=== PATIENT | female | born 1955 | race Caucasian/White ===

== ENCOUNTER 2022-01-25 13:55 | Outpatient (REF) | payer MEDICARE, SELFPAY | END 2022-01-25 13:56 | disposition home or self-care (01) | LOC: LAB 13:55 | PROVIDERS: Visit Provider Orthopaedic Surgery | DX: Z20.822 Contact with and (suspected) exposure to COVID-19 (principal); Z01.818 Encounter for other preprocedural examination | CPT/HCPCS: 36415; 86850; 86900; 86901; 87635 ==

== ENCOUNTER 2022-01-26 06:14 | Day surgery (SDC) | payer MEDICARE, SELFPAY ==
[2022-01-26] VITALS (25 sets, daily range): BP systolic 121–182; BP diastolic 70–126; PULSE 65–86; RESP 14–18; TEMP 36–36.9; O2SAT 85–100
[2022-01-26] MEDS: OXYCODONE (CR) 10 MG TAB.ER.12H PO (06:44)
[2022-01-26] MEDS: ACETAMINOPHEN 500 MG TABLET 1000 MG PO ×3 (06:44→18:54)
[2022-01-26] MEDS: CELECOXIB 200 MG CAPSULE PO ×2 (06:44→21:16)
[2022-01-26] MEDS: SODIUM CHLORIDE 0.9 % (FLUSH) 10 ML SYRINGE IVF (07:27)
[2022-01-26] MEDS: LACTATED RINGERS 1000 ML 1,000 ML 100 ML IV ×2 (07:28→09:37)
[2022-01-26] MEDS: MIDAZOLAM HCL 1 MG/ML inj IVP (07:36)
[2022-01-26] MEDS: fentaNYL 100 MCG/2 ML inj IVP (07:36)
--- NOTE | 2022-01-26 07:43 | SUR.PREOP ---
TIME?OUT:?0735 PT/RN/MDA?VERIFICATION?OF?SURGICAL?SITE,?PROCEDURE,?AND?CONSENT OBTAINED?PRIOR?TO?INVASIVE?PROCEDURE.
--- NOTE | 2022-01-26 07:45 | CRLHL7_ITS ---
For Patients: As a result of the Cures Act, medical imaging exams and procedure reports are released immediately into your electronic medical record. You may view this report before your referring provider. If you have questions, please contact your health care provider. Indication: Hip replacement surgery Technique: AP hip fluoroscopic images. Fluoroscopy time 78.9 seconds. Findings/Impression: Hardware from a left total hip arthroplasty is in satisfactory position. Dictated by Issac Livingston MD @ 01/26/2022 10:25:44 AM (Electronically Signed)
[2022-01-26] MEDS: CEFAZOLIN 2 GM INJ IVP (07:50)
[2022-01-26] MEDS: TRANEXAMIC ACID 100 MG/ML INJ 1000 MG IV (07:55)
--- NOTE | 2022-01-26 09:35 | CRLHL7_ITS ---
For Patients: As a result of the Cures Act, medical imaging exams and procedure reports are released immediately into your electronic medical record. You may view this report before your referring provider. If you have questions, please contact your health care provider. Indication: POST OP left DALILA Technique: AP hip center pelvis and lateral view left hip. Findings/Impression: Hardware from a left total hip arthroplasty is in satisfactory position. Bone alignment is normal. No sign of acute fracture. Postop changes are within normal limits. Dictated by Issac Livingston MD @ 01/26/2022 10:56:36 AM (Electronically Signed)
--- NOTE | 2022-01-26 09:37 | P.ORPRC_ITS ---
Procedure Note Date of procedure: 01/26/22 Procedure: PREOPERATIVE DIAGNOSIS: Left hip osteoarthritis POSTOPERATIVE DIAGNOSIS: Left hip osteoarthritis NAME OF OPERATION: Left total hip arthroplasty SURGEON: Terry Dietz MD [employer] HOST/HOSTESS: Merna Villarreal PA-C, ANTIONETTE Garibay IMPLANTS: 1. J&J Max # 52 sector ingrowth cup 2. 36 x 52 +4 neutral polyethylene 3. Actis # 6 standard collared ingrowth stem 4. 36 + 1.5 ceramic femoral head ANESTHESIA: Spinal ESTIMATED BLOOD LOSS: 100 cc COMPLICATIONS: None SPECIMENS: None DRAINS: None PREOPERATIVE ANTIBIOTICS: Ancef 2 grams INDICATIONS: The patient is a 66-year-old with a longstanding history of severe, unrelenting left hip pain secondary to end-stage left hip osteoarthritis. Despite appropriate nonoperative management, including activity modification, use of an assist device, anti-inflammatories, [id number] pain medication, physical therapy and injections, they continue to have pain and disability. Operative intervention was offered. The risks, benefits and expected outcomes were discussed in detail. These included but were not limited to: Infection, bleeding, injury to blood vessel or nerve, venous thromboembolism. All questions were answered to their satisfaction. Use of an tutoring assistant was necessary throughout the case for patient positioning and safety, soft tissue retraction and closure. PROCEDURE: The patient was placed supine on the Kennedy table. General anesthesia was administered. The tutoring assistant made sure the patient was properly positioned. The left hip was prepped and draped in the usual sterile fashion. The image intensifier was brought in for a perfect AP pelvis and a perfect double tear drop AP view of each hip which were used for intraoperative templating with our fluoroscopic guide. An oblique incision was made 3 cm distal and 3 cm lateral to the anterior superior iliac spine. The tutoring assistant retracted the soft tissues to protect them. Subcutaneous dissection was taken with electrocautery to the superficial fascia. The fascia was divided in line with the incision. Blunt dissection was carried medially to the tensor fascia nilsa and sartorius interval. Deep dissection was carried with electrocautery. The circumflex vessels were cauterized and divided. The capsule was exposed and then divided in a T- fashion, tagged with #1 Ethibond sutures. Retractors were placed in the joint, held by the tutoring assistant. The corkscrew was placed in the femoral head. The neck cut was made in the subcapital region. We made a second neck cut more distal. The napkin ring of bone was removed. The femoral head was removed intact. Acetabular retractors were placed, held by the tutoring assistant. The labrum was sharply debrided. The capsule was released. The 43 mm reamer was used to the true medial wall. We then enlarged in 2 mm increments using the image intensifier for our reamer placement. We impacted the cup which had excellent purchase. We placed the hole eliminator and the polyethylene. Attention was then turned to the proximal femur. The limb was placed in 140 degrees of external rotation, maximum extension and adduction. A significant amount of time was spent releasing the capsule to allow us to deliver the femur into the wound and complete the femoral side safely. Retractors were held by the tutoring assistant throughout the femoral preparation. The spreader box operator and canal finder were used. Broaches were used to a stable size. The calcar reamer was used. Trial components were placed. The hip was reduced and was found to be stable with appropriate soft tissue tension. Length and offset had been nicely restored using the image intensifier and our fluoroscopic guide. Trial components were removed. The stem was impacted. We placed the femoral head. Again, the hip was reduced and was found to be stable with appropriate soft tissue tension. Length and offset had been nicely restored. The tutoring assistant did a three minute dilute Betadine solution soak. The tutoring assistant irrigated the wound with 3 liters of normal saline via pulse lavage. The krish whitley repaired the anterior capsule with a #1 Vicryl and our previously placed Ethibond sutures. The tutoring assistant closed the fascia over the tensor fascia nilsa with a #1 PDO Stratafix, subcutaneous tissues with 2-0 Vicryl, skin with a running 3-0 Stratafix and glue. A dry dressing was applied by the tutoring assistant. Sponge and needle counts were correct x 2. The patient tolerated the procedure well; there were no apparent complications. They were awakened and extubated in the operating room, sent to the Post-Anesthesia Care Unit in satisfactory condition. PLAN: 1. The patient will be mobilized with physical therapy, weight-bearing as tolerates 2. Xarelto x 5 days then aspirin x 30 days will be used for DVT prophylaxis 3. The patient will be discharged once medically appropriate
--- NOTE | 2022-01-26 10:13 | P.NB_ITS ---
Nerve Block Nerve Block Time Seen by Provider: 07:41 Date Seen: 01/26/22 Type of block requested by surgeon for post-operative analgesia: MATTHIAS/LFCN Side: left Time out performed: Yes Verification of patient name: Yes Verification of date of : Yes Site marking: site marked Name of person performing procedure: Vel Continuous monitoring Was continuous monitoring of O2 sat, B/P, groundwater monitoring technician, recorded every 15 minutes?: Yes Procedure Checklist: sterile prep, needles and gloves Ultrasound guided. Images saved: Yes Medications given in 5ml increments after negative aspiration: Ropivicaine %: 0.5 mL: 30 Needle gauge: 20 Decadron (mg): 10 Precedex (mcg): 25 Patient tolerated procedure well: Yes Additional comments: Needle noted below psoas tendon needle noted adjacent to LFCN Block Charges Block Charge (with Pro Fee): Other Periph Nerve Block Use of Ultrasound Machine for Block: Yes- US Guidance/pain block
--- NOTE | 2022-01-26 10:25 | W.ANESCHARGE ---
Anesthesia Charges Start Date/Time Anesthesia Start Date: 01/26/22 Anesthesia Start Time: 07:44 Stop Date/Time Anesthesia Stop Date: 01/26/22 Anesthesia Stop Time: 10:22 Summary Emergency: No
--- NOTE | 2022-01-26 11:07 | W.ANESCHARGE ---
Anesthesia Charges Start Date/Time Anesthesia Start Date: 01/26/22 Anesthesia Start Time: 07:44 Stop Date/Time Anesthesia Stop Date: 01/26/22 Anesthesia Stop Time: 10:22 Summary Emergency: No
[2022-01-26] MEDS: HYDROmorphone 0.5 mg/0.5 ml inj IVP (11:20)
[2022-01-26] MEDS: OXYCODONE 5 MG TABLET PO ×2 (13:41→18:56)
[2022-01-26] MEDS: CEFAZOLIN 2 GM in 0.9 % SODIUM CHLORIDE Mini-bag 100 ML IVPB ×2 (13:42→22:16)
[2022-01-26] MEDS: LACTATED RINGERS 1000 ML 1,000 ML 75 ML IV (13:42)
--- NOTE | 2022-01-26 17:09 | PC.NURSE ---
Pt alert and oriented x4, pleasant and cooperative. Pt up with SBA. Pt voided 300. Pt reported 6/10 pain in left hip on arrival pain managed with PRN Oxy. Currently reported pain level 0-2/10. Tolerating a regular diet. Pt denies N/V. Dressing is DCI with active ice applied to side of hip.
--- NOTE | 2022-01-26 19:09 | P.IMCN_ITS ---
Date of Consult Patient: Mike Patient Consult date: 01/26/22 Primary Care Provider: Not a Local Provider (China Mendoza, FASHION BUYER at [facility]) Consult Narrative Reason for consult: Medical management of comorbidities Narrative: Gabrielle James is a 66 year old female who presented to the hospital today for an elective left DALILA. There were no surgical or anesthetic complications noted during procedure. She has ambulated since procedure and is overall feeling well. Patient's H&P reviewed, PCP is [facility] clinic in [place]. Past medical history significant for: Essential hypertension, PCOS, hypothyroidism + family history of malignant hyperthermia. History of blood clots: No Postoperative plan: Home with son Patient is nonsmoker, no concerning alcohol use. 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 Review of Systems Status of ROS: Reports: 10 or more systems reviewed and unremarkable except as noted in History and below PFSH PFSH Medical History (Updated 01/26/22 @ 19:18 by Suzi Chandler MD) Arthritis of left wrist Arthritis of right wrist Family history of anesthesia complication Hyperlipidemia Hypertension Hypothyroidism Osteopenia Polycystic ovarian syndrome Postmenopausal Vitamin D deficiency Surgical History (Updated 01/26/22 @ 19:17 by Suzi Chandler MD) H/O arthroscopy of knee H/O section H/O hysterectomy with oophorectomy H/O medial meniscus repair of left knee History of anterior colporrhaphy History of medial meniscus repair of right knee History of repair of rectocele S/P tonsillectomy Status post right hip replacement Social History (Updated 11/16/21 @ 14:05 by Hali Zhong [facility]) Smoking Status: Never smoker Do you use any of these nicotine containing products: None Second hand tobacco smoke exposure: No How often do you have a drink containing alcohol: monthly or less AUDIT-C Alcohol total score: 1 Non-prescribed substance use: denies use Caffeine: Yes (coffee ( very weak) 3 cups/day) Are you using contraception or practicing any form of control: No Meds Home Medications and Allergies Home Medications Medication Instructions Recorded Confirmed Type levothyroxine 125 mcg tablet 125 mcg PO DAILY 11/14/21 01/26/22 History metformin 500 mg tablet 500 mg PO BIDWM 11/14/21 01/26/22 History acetaminophen 500 mg tablet (Pain 500 mg PO Q6H PRN 01/25/22 01/26/22 History Reliever (acetaminophen)) atenolol 50 mg tablet 50 mg PO DAILY 01/25/22 01/26/22 History ibuprofen 200 mg tablet (Advil) 200 - 400 mg PO Q6H PRN 01/25/22 01/26/22 History mometasone 50 mcg/actuation nasal 2 spray intranasal DAILY PRN 01/25/22 01/26/22 History spray Allergies Allergy/AdvReac Type Severity Reaction Status Date / Time bee venom protein (honey bee) Allergy Severe Anaphylaxis Verified 01/25/22 08:42 propoxyphene Allergy Severe Anaphylaxis Verified 01/25/22 08:42 adhesive tape Allergy Rash Verified 01/25/22 08:42 Exam Narrative: Exam Narrative: GEN: Alert and oriented, sitting comfortably in bedside chair and answering questions appropriately HEENT: Normal external ears, EOMIs bilaterally, no scleral icterus CV: RRR, No concerning murmurs, rubs, or gallops R: LCTA bilaterally without concerning wheezing, rales, or rhonchi Ext: wwp, no concerning edema Skin: No concerning skin lesions or rashes on exposed skin Neuro: Nonfocal Psych: Appropriate Const: Vital Signs, click to edit/add: Vital Signs - 24 hr 01/26/22 07:01 01/26/22 07:22 01/26/22 07:38 Temperature 97.9 F Pulse Rate 68 65 67 Pulse Rate [Right Pulse Oximeter] Respiratory Rate 16 16 16 Blood Pressure 182/84 H 168/88 H 174/91 H Blood Pressure [Le ft Arm] Blood Pressure [Ri ght Arm] Pulse Oximetry 96 97 97 Oxygen Delivery Me thod Room Air Nasal Cannula Nasal Cannula Oxygen Flow Rate 3 3 01/26/22 10:18 01/26/22 10:25 01/26/22 10:30 Temperature 97.3 F L Pulse Rate 69 69 65 Pulse Rate [Right Pulse Oximeter] Respiratory Rate 14 14 14 Blood Pressure 128/87 123/71 121/81 Blood Pressure [Le ft Arm] Blood Pressure [Ri ght Arm] Pulse Oximetry 100 100 100 Oxygen Delivery Me thod OxyMask OxyMask OxyMask Oxygen Flow Rate 5 4 2 01/26/22 10:35 01/26/22 10:40 01/26/22 10:45 Temperature Pulse Rate 65 66 67 Pulse Rate [Right Pulse Oximeter] Respiratory Rate 14 16 16 Blood Pressure 133/87 148/83 H 150/90 H Blood Pressure [Le ft Arm] Blood Pressure [Ri ght Arm] Pulse Oximetry 100 97 97 Oxygen Delivery Me thod Room Air Oxygen Flow Rate 01/26/22 10:50 01/26/22 10:59 01/26/22 11:00 Temperature 98.1 F 96.8 F L 96.8 F L Pulse Rate 67 67 Pulse Rate [Right Pulse Oximeter] 67 Respiratory Rate 16 14 14 Blood Pressure 146/79 H Blood Pressure [Le ft Arm] 155/126 H Blood Pressure [Ri ght Arm] 155/126 H Pulse Oximetry 97 97 Oxygen Delivery Me thod Room Air Room Air Room Air Oxygen Flow Rate 2 01/26/22 11:15 01/26/22 11:30 01/26/22 11:45 Temperature 97.3 F L Pulse Rate Pulse Rate [Right Pulse Oximeter] 68 69 70 Respiratory Rate 14 Blood Pressure Blood Pressure [Le ft Arm] Blood Pressure [Ri ght Arm] 144/103 H 150/90 H 144/82 H Pulse Oximetry 98 90 96 Oxygen Delivery Me thod Room Air Room Air Room Air Oxygen Flow Rate 01/26/22 12:00 01/26/22 12:30 01/26/22 13:00 Temperature 97.5 F L 98.5 F Pulse Rate Pulse Rate [Right Pulse Oximeter] 70 77 82 Respiratory Rate 16 16 Blood Pressure Blood Pressure [Le ft Arm] Blood Pressure [Ri ght Arm] 163/95 H 151/89 H 141/76 H Pulse Oximetry 95 95 95 Oxygen Delivery Me thod Room Air Room Air Room Air Oxygen Flow Rate 01/26/22 14:00 01/26/22 15:00 01/26/22 16:00 Temperature 98.5 F 98.3 F 97.5 F L Pulse Rate Pulse Rate [Right Pulse Oximeter] 81 80 86 Respiratory Rate 18 16 18 Blood Pressure Blood Pressure [Le ft Arm] 132/75 136/78 Blood Pressure [Ri ght Arm] 152/84 H Pulse Oximetry 97 98 98 Oxygen Delivery Me thod Room Air Room Air Room Air Oxygen Flow Rate 01/26/22 17:00 Temperature 98.1 F Pulse Rate Pulse Rate [Right Pulse Oximeter] 76 Respiratory Rate 16 Blood Pressure Blood Pressure [Le ft Arm] 133/70 Blood Pressure [Ri ght Arm] Pulse Oximetry 92 Oxygen Delivery Me thod Room Air Oxygen Flow Rate Assessment and Plan Assessment and plan (1) S/P hip replacement: Problem comment: - LEFT, 01/[address] Dietz Status: Acute (2) Hypertension: Problem comment: - on atenolol Status: Acute (3) Hypothyroidism: Problem comment: - on replacement Status: Acute Plan - anticipate routine postoperative cares and course - pain management and prophylaxis per orthopedic surgery team - continue home medications
[2022-01-26] MEDS: SENNOSIDES 1 TAB TABLET 2 TAB PO (21:17)
[2022-01-26] MEDS: atenoloL 50 MG TABLET PO (21:17)
--- NOTE | 2022-01-26 22:09 | PC.NURSE ---
End of Shift: Patient pleasant and cooperative. Afebrile. Dressing to left hip C/D/I. CMS intact. Denies pain. Up with 1 assist, walker and gait belt. Tolerating regular diet with no nausea. O2 sats decrease to 85-88% on room air while sleeping. !L NC applied and sats above 90%, updated .
[2022-01-27] MEDS: OXYCODONE 5 MG TABLET PO (00:25)
[2022-01-27] MEDS: ACETAMINOPHEN 500 MG TABLET 1000 MG PO ×2 (00:25→07:57)
[2022-01-27 03:00] VITALS: PULSE 70; RESP 16; O2SAT 93
[2022-01-27] MEDS: CEFAZOLIN 2 GM in 0.9 % SODIUM CHLORIDE Mini-bag 100 ML IVPB (05:35)
[2022-01-27 06:50] LABS: Basophils Percent Auto 0.2 % (0.0-3.0); Eosinophils Percent Auto 0.1 % (0.0-7.0); Hematocrit 35.5 % (33.0-51.0); Hemoglobin* 11.5 gm/dL (12.0-16.0); Immature Granulocytes Pct Auto 0.6 %; Lymphocytes Percent Auto 14.6 % (20-44); Mean Corpuscular HGB Conc 32 gm/dL (32-36); Mean Corpuscular Hemoglobin 30 pg (26-34); Mean Corpuscular Volume 93 fL (80-100); Monocytes Percent Auto 10.7 % (0.0-11.0); Neutrophils Percent Auto 73.8 % (42.0-72.0); Platelet Count* 264 K/uL (140-440); RDW Coefficient of Variation % 12.9 % (11.5-15.5); White Blood Count* 13.12 K/uL (4.50-11.00)
[2022-01-27 07:00] VITALS: BP 133/75; PULSE 72; RESP 20; TEMP 37; O2SAT 95
[2022-01-27 07:01] LABS: Slide Review Reflex No
[2022-01-27 07:32] LABS: Potassium* 4.2 mmol/L (3.6-5.1); Sodium* 139 mmol/L (135-149)
[2022-01-27 07:35] LABS: Creatinine* 0.7 mg/dL (0.5-1.5); Estimated Glomerular Filt Rate 95 ml/min
--- NOTE | 2022-01-27 07:35 | PC.NURSE ---
23-07: pleasant and cooperative. SBA with gb and walker. Walked halls x 2. VSS. Ice to hip.?Dressing CDI.
[2022-01-27 07:36] LABS: Blood Urea Nitrogen* 17 mg/dL (7-30)
[2022-01-27] MEDS: METFORMIN 500 MG TABLET PO (07:57)
[2022-01-27] MEDS: CELECOXIB 200 MG CAPSULE PO (07:57)
[2022-01-27] MEDS: LEVOTHYROXINE 125 MCG TABLET PO (07:58)
[2022-01-27] MEDS: RIVAROXABAN 10 MG TABLET PO (07:58)
[2022-01-27] MEDS: SENNOSIDES 1 TAB TABLET 2 TAB PO (08:00)
--- NOTE | 2022-01-27 09:00 | PM.ORPN ---
Subjective Subjective Time Seen by Provider: 07:30 Date Seen: 01/27/22 Principal diagnosis: Left total hip arthroplasty 01/26/2022 Interval history: Gabrielle is comfortable this morning. She had a good night's sleep. She will be discharging to home today. Ortho Exam Narrative Exam Narrative: Alert and oriented x3. Patient is in no acute distress. Converses without labored breathing. Hearing is grossly intact. Ambulates with a walker. Examination of left hip shows the dressing is intact. There is no erythema or drainage. Minimal soft tissue edema about the left hip and thigh. CMS is intact left lower extremity however she does have a small patch of numbness distal to her incision. Bilateral calves are soft and nontender. Good quad strength Const Vital Signs, click to edit/add: Vital Signs - 24 hr 01/26/22 10:18 01/26/22 10:25 01/26/22 10:30 Temperature 97.3 F L Pulse Rate 69 69 65 Pulse Rate [Right Pulse Oximeter] Respiratory Rate 14 14 14 Blood Pressure 128/87 123/71 121/81 Blood Pressure [Left Arm] Blood Pressure [Right Arm] Pulse Oximetry 100 100 100 Oxygen Delivery Method OxyMask OxyMask OxyMask Oxygen Flow Rate 5 4 2 01/26/22 10:35 01/26/22 10:40 01/26/22 10:45 Temperature Pulse Rate 65 66 67 Pulse Rate [Right Pulse Oximeter] Respiratory Rate 14 16 16 Blood Pressure 133/87 148/83 H 150/90 H Blood Pressure [Left Arm] Blood Pressure [Right Arm] Pulse Oximetry 100 97 97 Oxygen Delivery Method Room Air Oxygen Flow Rate 01/26/22 10:50 01/26/22 10:59 01/26/22 11:00 Temperature 98.1 F 96.8 F L 96.8 F L Pulse Rate 67 67 Pulse Rate [Right Pulse Oximeter] 67 Respiratory Rate 16 14 14 Blood Pressure 146/79 H Blood Pressure [Left Arm] 155/126 H Blood Pressure [Right Arm] 155/126 H Pulse Oximetry 97 97 Oxygen Delivery Method Room Air Room Air Room Air Oxygen Flow Rate 2 01/26/22 11:15 01/26/22 11:30 01/26/22 11:45 Temperature 97.3 F L Pulse Rate Pulse Rate [Right Pulse Oximeter] 68 69 70 Respiratory Rate 14 Blood Pressure Blood Pressure [Left Arm] Blood Pressure [Right Arm] 144/103 H 150/90 H 144/82 H Pulse Oximetry 98 90 96 Oxygen Delivery Method Room Air Room Air Room Air Oxygen Flow Rate 01/26/22 12:00 01/26/22 12:30 01/26/22 13:00 Temperature 97.5 F L 98.5 F Pulse Rate Pulse Rate [Right Pulse Oximeter] 70 77 82 Respiratory Rate 16 16 Blood Pressure Blood Pressure [Left Arm] Blood Pressure [Right Arm] 163/95 H 151/89 H 141/76 H Pulse Oximetry 95 95 95 Oxygen Delivery Method Room Air Room Air Room Air Oxygen Flow Rate 01/26/22 14:00 01/26/22 15:00 01/26/22 16:00 Temperature 98.5 F 98.3 F 97.5 F L Pulse Rate Pulse Rate [Right Pulse Oximeter] 81 80 86 Respiratory Rate 18 16 18 Blood Pressure Blood Pressure [Left Arm] 132/75 136/78 Blood Pressure [Right Arm] 152/84 H Pulse Oximetry 97 98 98 Oxygen Delivery Method Room Air Room Air Room Air Oxygen Flow Rate 01/26/22 17:00 01/26/22 19:00 01/26/22 22:12 Temperature 98.1 F 97.9 F Pulse Rate Pulse Rate [Right Pulse Oximeter] 76 76 Respiratory Rate 16 16 Blood Pressure Blood Pressure [Left Arm] 133/70 Blood Pressure [Right Arm] 146/82 H Pulse Oximetry 92 94 85 L Oxygen Delivery Method Room Air Room Air Room Air Oxygen Flow Rate 01/26/22 22:12 01/26/22 23:00 01/26/22 23:00 Temperature Pulse Rate Pulse Rate [Right Pulse Oximeter] 75 Respiratory Rate 16 16 Blood Pressure Blood Pressure [Left Arm] Blood Pressure [Right Arm] Pulse Oximetry 91 93 Oxygen Delivery Method Nasal Cannula Nasal Cannula Oxygen Flow Rate 1 1 01/26/22 23:00 01/27/22 03:00 01/27/22 07:00 Temperature 97.6 F Pulse Rate Pulse Rate [Right Pulse Oximeter] 75 70 Respiratory Rate 16 16 Blood Pressure Blood Pressure [Left Arm] Blood Pressure [Right Arm] 133/71 Pulse Oximetry 93 93 95 Oxygen Delivery Method Nasal Cannula Nasal Cannula Room Air Oxygen Flow Rate 1 1 01/27/22 07:00 Temperature 98.6 F Pulse Rate Pulse Rate [Right Pulse Oximeter] 72 Respiratory Rate 20 Blood Pressure Blood Pressure [Left Arm] 133/75 Blood Pressure [Right Arm] Pulse Oximetry 95 Oxygen Delivery Method Room Air Oxygen Flow Rate Assessment and Plan Assessment and plan (1) S/P hip replacement: Problem details: - LEFT, 01/[address] Dietz Status: Acute Assessment and Plan: Plan for discharge is today to home if they meet discharge criteria. DVT prophylaxis includes Xarelto 10 mg daily for total of 5 days, then aspirin 81 mg twice daily for 30 days, Justyn stockings x1 month may remove for 1 hr per day, frequent ambulation Remove dressing 1 week. Observe wound and phone Orthopedics with any questions or concerns Use Ice on operative hip unrestricted. Return to clinic in 1 week with PA for a wound check Return to clinic in [address] Dietz Minimize narcotic use. Wean off and discontinue soon as possible. Activities as tolerated. No strenuous activity. Attend outpt PT (2) Hypertension: Problem details: - on atenolol Status: Acute (3) Hypothyroidism: Problem details: - on replacement Status: Acute
[2022-01-27 09:38] VITALS: BP 146/79; PULSE 67; RESP 20; TEMP 37
== END 2022-01-27 11:06 | disposition home or self-care (01) ==
LOC: OR 06:15 → MEDSURG 06:23
PROVIDERS: Visit Provider Orthopaedic Surgery
PROC: (CPT 27130; principal; 2022-01-26 07:45)
DX: M16.12 Unilateral primary osteoarthritis, left hip (principal); M25.552 Pain in left hip; I10 Essential (primary) hypertension; E03.9 Hypothyroidism, unspecified; E28.2 Polycystic ovarian syndrome
CPT/HCPCS: 27130; 01214; 36415; 64450; 73501; 76000; 76942; 82565; 84132; 84295; 84520; 85025; 97110; 97116; 97161; 97165; 97535; A9270; C1776; J0690; J1100; J1170; J2250; J2370; J2405; J2704; J2795; J3010; J7120